=== PATIENT | male | born 1965 | race Caucasian/White ===

== ENCOUNTER 2018-10-08 20:55 | Emergency (ER) | payer MEDICAID ==
[~2018-10-08] VITALS: Ht 180.3 cm; Wt 65.0 kg
[2018-10-08 21:03] VITALS: BP 162/134
[2018-10-08] MEDS ORDERED: TETanus/Pertussis (Acell)/Diphther VAC/PF (Tdap-Adult) 0.5ml syringe IM ONE (22:50)
[2018-10-08] MEDS ORDERED: LIDOcaine 1% w/epiNEPHrine 1:200,000 30ml vial IM ONE (22:50)
[2018-10-08] MEDS ORDERED: BACDS PO (23:03)
[2018-10-08] MEDS ORDERED: CEPH-572 PO (23:03)
[2018-10-08] MEDS ORDERED: HYDROcodone/acetaminophen 5mg/325mg tablet PO ONE (23:05)
== END 2018-10-08 23:38 | disposition home or self-care (01) ==
LOC: ER 20:57
DX: L02.01 Cutaneous abscess of face (principal); L03.211 Cellulitis of face; Z86.14 Personal history of Methicillin resistant Staphylococcus aureus infection; Z79.899 Other long term (current) drug therapy
CPT/HCPCS: 10060; 90715; 99283; J3490